=== PATIENT | male | born 1975 | race Caucasian/White ===

== ENCOUNTER → 2022-11-15 07:00 | Outpatient (CLI) | payer BC, SELFPAY ==
--- NOTE | ~2022-11-15 | MR_ITS ---
EXAMINATION: MR knee RT wo con DATE: 11/15/2022 07:29 INDICATION: Acute pain of right knee. TECHNIQUE: Magnetic resonance imaging (MRI) of the right knee was performed without intravenous contr ast. Sequences included axial PD-weighted FS FSE, coronal PD-weighted FSE and PD-weighted FS FSE, sag ittal PD-weighted FSE, and sagittal T2-weighted FS FSE. COMPARISON: None. FINDINGS: Medial compartment: Medial meniscus is normal. There is partial-thickness cartilage loss of femoral condyle, deep at the central articular surface. There is cartilage surface irregularity of tibial condyle. Osteophytes are noted. Lateral compartment: Lateral meniscus is normal. There is shallow partial-thickness cartilage loss of tibial condyle and f emoral condyle. There is deep cartilage fissuring of femoral condyle involving the central and bowling floor desk clerk ior articular surface. There is deep cartilage fissuring of tibial condyle involving the central stephanie cular surface. Marginal osteophytes are noted. Patellofemoral compartment: There is deep cartilage fissuring of patellar medial and lateral facets. There is an intra-articular osteophyte at the patellar median ridge. There is full-thickness cartilage loss of central trochlea a nd partial thickness cartilage loss of medial and lateral trochlea. Marginal osteophytes are noted. Ligaments and tendons: The anterior and posterior cruciate ligaments are normal. Medial collateral ligament and lateral lew ateral ligament complex are intact. There is mild patellar tendinopathy. Fluid: There is a small knee joint effusion. There is a 6 mm loose body in the anterior intercondylar notch. IMPRESSION: 1. Severe chondrosis of patellofemoral compartment and moderate chondrosis of medial and lateral comp artments. 2. Small knee joint effusion with loose body. Reviewed, dictated and finalized at location A. IMPRESSION: 1. Severe chondrosis of patellofemoral compartment and moderate chondrosis of m edial and lateral compartments. 2. Small knee joint effusion with loose body.
== END ==
PROVIDERS: PCP Nurse Practitioner Family; Visit Provider Nurse Practitioner Family
DX: M25.461 Effusion, right knee (principal)
CPT/HCPCS: 73721